=== PATIENT | female | born 1935 | race Caucasian/White ===

== ENCOUNTER 2020-11-04 09:28 | Observation (INO) | payer MEDICARE, SELFPAY ==
[2020-11-04] VITALS (18 sets, daily range): BP systolic 117–140; BP diastolic 52–107; PULSE 59–133; RESP 15–31; TEMP 36.6–37.2; O2SAT 94–100; BMI 29.2
--- NOTE | ~2020-11-04 | XR_ITS ---
XR chest 2V 11/04/2020 10:17 Indication: Shortness of breath. Hypertension. Procedure: 2 view chest Comparison: Comparison to multiple prior studies sequentially, with oldest reviewed study dated 12/06. Findings: There is left lower lobe airspace disease. Small left pleural effusion. No pneumothorax. Pa cemaker leads in expected position. No acute osseous abnormality. Cardiomegaly. Impression: 1: Left lower lobe airspace disease which may represent atelectasis or developing pneumonia. 2: Small left pleural effusion. 3: Cardiomegaly. Reviewed, dictated and finalized at location A. Impression: 1: Left lower lobe airspace disease which may represent atelectasis or developi ng pneumonia. 2: Small left pleural effusion. 3: Cardiomegaly.
--- NOTE | 2020-11-04 09:39 | ECG_ITS ---
Measurements Intervals [place] Rate: 64 P: 144 CA: 234 QRS: -54 QRSD: 148 T: 152 QT: 400 QTc: 413 Interpretive Statements ELECTRONIC ATRIAL PACEMAKER LEFT AXIS DEVIATION LEFT BUNDLE BRANCH BLOCK BASELINE ARTIFACT- I, II, III, AVR, AVL, AVF, V1-V6 NO FURTHER INTERPRETATION IS POSSIBLE ATYPICAL ECG Electronically Signed On 11-04-2020 9:44:13 CDT by Corey Padilla D.O.
[2020-11-04 10:13] LABS: Basophils Percent Auto 0.6 % (0.2-1.2); Eosinophils Absolute Auto 0.2 K/mm3 (0-0.3); Eosinophils Percent Auto 3.7 % (0-4.4); Hematocrit 41.2 % (37.0-47.0); Hemoglobin 12.7 g/dL (12.0-15.0); Immature Granulocyte Absolute 0.02 K/mm3 (0.00-0.031); Immature Granulocyte Percent A 0.3 % (0-0.5); Lymphocytes Absolute Auto 1.56 K/mm3 (0.9-3.2); Lymphocytes Percent Auto 24.8 % (18.3-44.2); Mean Corpuscular HGB Conc 30.8 g/dl (32-36); Mean Corpuscular Hemoglobin 30.2 pg (26-34); Mean Corpuscular Volume 97.9 fl (80-100); Mean Platelet Volume 10.7 fl (7.4-10.4); Monocytes Absolute Auto 0.5 K/mm3 (0.1-0.6); Monocytes Percent Auto 8.3 % (2.6-8.5); Neutrophils Absolute Auto 3.9 K/mm3 (1.3-6.7); Neutrophils Percent Auto 62.3 % (45.5-73.1); Platelet Count Result 202 k/mm3 (150-375); Red Blood Count 4.21 M/mm3 (4.2-5.4); Red Cell Distribution Width 15.3 % (11.5-14.5); White Blood Count 6.3 K/mm3 (4.5-10.0)
[2020-11-04 10:31] LABS: Anion Gap 10 mmol/L (8-16); Blood Urea Nitrogen 28 mg/dL (7-17); Calcium 9.6 mg/dL (8.4-10.2); Carbon Dioxide 22 mmol/L (22-30); Chloride 109 mmol/L (98-107); Estimated CRCL calculation 20 ml/min; Estimated Glomerular Filt Rate 27; Glucose 125 mg/dL (65-105); Potassium 5.1 mmol/L (3.4-5.0); Sodium 141 mmol/L (137-145)
[2020-11-04 10:37] LABS: Alveolar/Arterial O2 Gradient 18.9 mmHg; Base Excess ABG -5.4 mEq/l (+/-2.0); Carboxyhemoglobin 1.4 % THb (0-2.0); Fractional Inspired Oxygen 21 %; Methemoglobin ABG 0.3 %THb (0-1.5); Modified Allen's Test Pass; Oxygen Saturation ABG 96.7 % (95.0-100.0); PO2 ABG 90.1 mmHg (80.0-100.0); PO2 FiO2 Ratio Arterial Blood 4.29 %; Reduced Hemoglobin 3.3 %THb (0-5.0); Site Drawn LEFT RADIAL; Total Hemoglobin 13.4 g/dL (12.0-18.0); pH ABG 7.366 (7.350-7.450)
[2020-11-04 10:38] LABS: Device ROOM AIR
[2020-11-04 10:42] LABS: NT Pro B Type Natriuretic Pept 3210 pg/mL (5-100); Troponin I 0.018 ng/mL (0.000-0.034)
[2020-11-04 10:46] LABS: INR 0.9; Partial Thromboplastin Time 32.9 SECONDS (22.3-36.8); Prothrombin Time 13.1 Seconds (11.1-14.7)
--- NOTE | 2020-11-04 10:46 | ED.SOB ---
HPI - SOB/Dyspnea General Chief Complaint: Shortness of Breath/Dyspnea Stated Complaint: SOB Time Seen by Provider: 11/04/20 10:15 Source: patient Mode of arrival: EMS Limitations: no limitations History of Present Illness HPI Narrative: This is a 84-year-old female that presents to the emergency department for sudden onset shortness of breath this morning. Reports she got up this morning went to the restroom. When she went to lie back down she suddenly felt very short of breath. This has continued since onset which prompted her to call EMS. She was placed on oxygen which has helped her feel better. She does still have some shortness of breath that is worse when she lies flat. Does also report a cough. Denies fever, chest pain, or lower extremity edema. Related Data Home Medications Medication Instructions Recorded Confirmed atorvastatin 06/10/19 furosemide 06/10/19 hydrocodone-acetaminophen 06/10/19 insulin detemir U-100 [Levemir unit SUBCUT 06/10/19 FlexTouch U-100 Insuln] metoprolol succinate PO 06/10/19 pioglitazone mg 06/10/19 amlodipine 11/04/20 Allergies Allergy/AdvReac Type Severity Reaction Status Date / Time propoxyphene AdvReac Mild Vomiting Verified 11/06/19 13:45 sotalol AdvReac Mild SLOW Verified 11/06/19 13:45 HEART/SEIZURES Review of Systems Review of Systems: Narrative: CONSTITUTIONAL: Denies fever CARDIOVASCULAR: Denies chest pain, or edema. RESPIRATORY: Reports cough and dyspnea. All systems reviewed & are unremarkable except as noted in HPI and below PMFSH Past Medical History Medical History (Updated 11/04/20 @ 13:13 by Gwen Gilliam PA-C) Diabetes High cholesterol History of cardiac disorder History of pacemaker (~2012) Hypertension Osteoarthritis of right knee Surgical History Surgical History (Updated 11/06/19 @ 13:47 by Melany Callaway) History of lumbar surgery (~03/20/17) Family History Family History Other Diabetes mellitus Family history of congenital heart disease Social History Social History Smoking status: Never smoker Alcohol intake: never Exam Narrative: Exam Narrative: GENERAL: Elderly, well-nourished, and in no acute distress. HEAD: Normocephalic, atraumatic. EYES: EOMI. ENT: Nares clear, no rhinorrhea or epistaxis. Mucous membranes moist. Oropharynx without tonsillar hypertrophy exudate or other lesions. Bilateral TMs pearly knight non-bulging NECK: Supple. No adenopathy or masses. CHEST: Clear to auscultation. No respiratory distress. No wheezes rales or rhonchi HEART: Regular rate and rhythm. No murmur heard. Normal peripheral pulses. EXTREMITIES: Normal range of motion. No edema. SKIN: Warm, dry, no rash. NEURO: No focal deficits. Alert and oriented x3. PSYCH: Normal mood and affect Course Consultations Consultation #1: Spoke with hospitalist about patient and work-up who accepts admission Date: 11/04/20 Time: 12:20 Vital Signs Vital signs: Vital Signs Pulse Rate 76 11/04/20 09:33 Respiratory Rate 31 H 11/04/20 09:33 Blood Pressure 140/77 11/04/20 09:33 Pulse Oximetry 99 11/04/20 09:33 Temperature 98.7 F 11/04/20 11:30 Pulse Rate 66 11/04/20 11:30 Respiratory Rate 24 H 11/04/20 11:30 Blood Pressure 140/59 L 11/04/20 11:30 Pulse Oximetry 98 11/04/20 11:30 MDM - SOB/Dyspnea MDM Narrative Medical decision making narrative: Patient presents to the emergency department for shortness of breath since this morning that is worsened with lying flat. She is afebrile and nontoxic-appearing. Patient was anxious and tachypneic upon arrival of EMS, they placed her on 3 L nasal cannula. She has been able to be weaned down to 1 L nasal cannula with normal oxygen saturation maintained. CBC is without concerning findings. Metabolic panel with renal function that is likely around her
[2020-11-04] MEDS: FUROSEMIDE INJ 40 MG/4 ML VIAL IV PUSH (11:44)
--- NOTE | 2020-11-04 11:59 | PC.NURSE ---
Patient was taken to the bathroom by sera steady, tolerated well.
--- NOTE | 2020-11-04 12:01 | PC.NURSE ---
Blood glucose was 174 at 12:01
[2020-11-04 12:02] LABS: Glucose Point of Care 174 mg/dl (65-105)
--- NOTE | 2020-11-04 15:02 | ADMGEN ---
This patient, Adina Saldana, was admitted to [facility] Surg Room 327-01. Patient/family oriented to hospital policies and general routines including ID bracelet, bed and alarms, visiting hours, pain management, procedures, bathroom and other care routines, personal items, smoking policy, room service/diet, and visiting hours. Information on how to activate the Rapid Response Team has been discussed. Patient/Family are encouraged to report perceived risks to care and to ask questions if they do not understand what they are told or what they should do.
--- NOTE | 2020-11-04 16:29 | PM.IMHP ---
H&P: HPI History of Present Illness Date/Time: 11/04/20 16:29 this is a 84-year-old female patient who has a history of chronic renal disease and congestive heart failure. The patient has been taking her home medications routinely. However she does not weigh herself daily. The patient stated that she woke up earlier than normal this morning. She woke up and went to the bathroom and was going to return back to bed because it was at her usual waking time. However when the patient got back to bed and laid down she suddenly felt short of breath. She had a set on the side of bed to try to catch her breath and that did help. The patient then sat in the recliner in that did help. The patient stated that she had a similar episode about 2014 and stated that she was diagnosed with congestive heart failure. Staying indoors and has not been out since the COVID outbreak and has not had any recent exposed your to any by that has COVID. The patient was placed on oxygen at 2 L per nasal cannula. Her shortness of breath is worse when she lays flat. She has not had any cough or fever or chest pain or edema to lower extremities. Chest x-ray was read as the following 1: Left lower lobe airspace disease which may represent atelectasis or developing pneumonia. 2: Small left pleural effusion. 3: Cardiomegaly. She was started on a azithromycin and Rocephin for pneumonia. She was also given IV Lasix in the emergency room. The patient does have chronic renal disease and states that her GFR is typically 24 today it is 27 BNP is 3210. Creatinine is 1.8. Potassium is 5.1. Accu-Chek was 174. For COVID-19 prior to be being admitted to 3rd floor. Patient is being admitted to observation status on the date of service of 11/04/2020. Chief Complaint: sob Review of Systems Review of Systems: All systems reviewed & are unremarkable except as noted in HPI and below Constitutional: Constitutional: Reports as per HPI and Reports no additional constitutional complaints Eyes: Eyes: Reports as per HPI and Reports no additional eye complaints ENT: Reports system reviewed and no additional complaints, except as documented and Reports Normal hearing present Cardiovascular: Cardiovascular: Reports no additional cardiovascular complaints Respiratory: Respiratory: Reports no additional respiratory complaints and Reports no additional respiratory complaints Gastrointestinal: Gastrointestinal: Reports as per HPI and Reports no additional gastrointestinal complaints Musculoskeletal: Musculoskeletal: Reports no additional musculoskeletal complaints Integumentary/Breasts: Skin/Breast: Reports system reviewed and no additional complaints, except as docu and Reports as per HPI Neurologic: Reports system reviewed and no additional complaints, except as documented, Reports as per HPI and Reports Normal hearing present Psychiatric: Psychiatric: Reports no additional psychiatric complaints and Reports as per HPI Endocrine: Endocrine: Reports no additional endocrine complaints Hematologic/Lymphatic: Hematologic/Lymphatic: Reports no additional hematologic/lymphatic complaints Allergic/Immunologic: Allergic/Immunologic: Reports no additional allergic/immunologic complaints [facility] Past Medical History Medical History (Updated 11/04/20 @ 17:06 by Callie Barrera NP) Chronic renal failure, stage 4 (severe) Diabetes High cholesterol History of cardiac disorder History of pacemaker (~2012) Hypertension Osteoarthritis of right knee Surgical History Surgical History (Updated 11/04/20 @ 16:34 by Callie Barrera NP) H/O hand surgery History of cataract extraction History of lumbar surgery (~03/20/17) Family History Family History (Updated 11/04/20 @ 16:35 by Callie Barrera NP) Mother Diabetes mellitus Family history of congenital heart disease Congestive heart failure Sibling Diabetes mellitus Other Diabetes mellitus Father Congestive heart failure Yeimi
[2020-11-04] MEDS: HYDROcodone/acetaminophen (*CRX) 5-325 MG TABLET 1 TAB PO (20:36)
[2020-11-04] MEDS: ATORVASTATIN 40 MG TABLET PO (20:37)
[2020-11-04] MEDS: METOPROLOL SUCCINATE EXT REL 100 MG TABCR PO (20:37)
[2020-11-04] MEDS: HEPARIN SODIUM 5,000 UNITS/ML VIAL 5000 UNITS SUB-Q (20:38)
[2020-11-04] MEDS: INSULIN DETEMIR 100 UNITS/ML 14 UNITS SUB-Q (22:34)
[2020-11-04 23:03] LABS: Glucose Point of Care 274 mg/dl (65-105)
[2020-11-05] VITALS (10 sets, daily range): BP systolic 92–151; BP diastolic 51–72; PULSE 62–88; RESP 12–20; TEMP 36.4–37; O2SAT 94–100
[2020-11-05 07:09] LABS: Hematocrit 33.8 % (37.0-47.0); Immature Granulocyte Absolute 0.03 K/mm3 (0.00-0.031); Immature Granulocyte Percent A 0.5 % (0-0.5); Lymphocytes Absolute Auto 0.59 K/mm3 (0.9-3.2); Lymphocytes Percent Auto 9.7 % (18.3-44.2); Mean Corpuscular HGB Conc 32.5 g/dl (32-36); Mean Corpuscular Hemoglobin 30.1 pg (26-34); Mean Corpuscular Volume 92.6 fl (80-100); Mean Platelet Volume 11.3 fl (7.4-10.4); Monocytes Absolute Auto 0.6 K/mm3 (0.1-0.6); Monocytes Percent Auto 10.5 % (2.6-8.5); Neutrophils Absolute Auto 4.8 K/mm3 (1.3-6.7); Neutrophils Percent Auto 79.3 % (45.5-73.1); Platelet Count Result 184 k/mm3 (150-375); Red Blood Count 3.65 M/mm3 (4.2-5.4); Red Cell Distribution Width 15.1 % (11.5-14.5); White Blood Count 6.1 K/mm3 (4.5-10.0)
[2020-11-05 07:23] LABS: Lactic Acid Reflex 1.1 mmol/L (0.7-2.1)
[2020-11-05 07:29] LABS: Anion Gap 9 mmol/L (8-16); Blood Urea Nitrogen 34 mg/dL (7-17); Calcium 9.3 mg/dL (8.4-10.2); Carbon Dioxide 22 mmol/L (22-30); Chloride 107 mmol/L (98-107); Estimated CRCL calculation 21 ml/min; Estimated Glomerular Filt Rate 27; Glucose 120 mg/dL (65-105); Potassium 5.3 mmol/L (3.4-5.0); Sodium 138 mmol/L (137-145)
[2020-11-05 08:22] LABS: Glucose Point of Care 114 mg/dl (65-105)
[2020-11-05 08:38] LABS: Thyroid Stimulating Hormone Reflex 0.367 uIU/mL (0.465-4.68)
[2020-11-05] MEDS: FUROSEMIDE INJ 40 MG/4 ML VIAL IV PUSH (09:22)
[2020-11-05] MEDS: ASPIRIN 81 MG CHEWABLE TABLET PO (09:23)
[2020-11-05] MEDS: HEPARIN SODIUM 5,000 UNITS/ML VIAL 5000 UNITS SUB-Q ×2 (09:23→21:15)
[2020-11-05] MEDS: amLODIPine BESYLATE 5 MG TABLET PO (09:23)
[2020-11-05] MEDS: HYDROcodone/acetaminophen (*CRX) 5-325 MG TABLET 1 TAB PO ×2 (09:24→21:15)
--- NOTE | 2020-11-05 10:10 | PM.IMPN ---
Progress Note: A&P Assessment and Plan (1) Acute exacerbation of CHF (congestive heart failure): Qualifiers: Heart failure type: unspecified Qualified Code(s): I50.9 - Heart failure, unspecified Code(s): I50.9 - Heart failure, unspecified Status: Acute Assessment and Plan: Symptoms clinically consistent with CHF exacerbation with MCKEE and orthopnea. Findings of small pleural effusion and cardiomegaly on CXR. BNP is 3200. Continue diuresis with IV Lasix 40 mg daily. Plan to transition to oral Lasix tomorrow if continued improvement. Continue cautious diuresis in light of chronic kidney disease. Echo has been ordered Continue home metoprolol Monitor daily weights and intake and output. Heart healthy diet. (2) Abnormal chest xray: Code(s): R93.89 - Abnormal findings on diagnostic imaging of other specified body structures Status: Acute Assessment and Plan: CXR with left lower lobe airspace disease which may represent atelectasis or developing pneumonia. She does not have symptoms of acute infection, no fever, leukocytosis, or tachycardia and I feel that her shortness of breath is explained by suspected CHF exacerbation. She is currently requiring 1 L supplemental O2, although does not appear she has been hypoxic and is maintaining adequate oxygen saturations >92% Will hold off on further antibiotics at this time. Supportive care to include incentive spirometry, bronchodilators, and expectorants Wean oxygen with goal saturation 92% or above. (3) Diabetes: Code(s): E11.9 - Type 2 diabetes mellitus without complications Status: Chronic Assessment and Plan: Reports last A1c is 6.6. Blood sugars have been fairly well controlled today. Continue Accu-Cheks, sliding scale insulin, and hypoglycemic protocol Continue home levemir 14 units qHS Check updated A1c (4) Chronic renal failure, stage 4 (severe): Code(s): N18.4 - Chronic kidney disease, stage 4 (severe) Status: Chronic Assessment and Plan: She reports baseline GFR of 24. She is established with multiple needle stitcher Dr. Grimm. She states that she is compliant with a renal diet. Renal function remaining consistent today. Continue to monitor BMP closely with Lasix. (5) Hyperkalemia: Code(s): E87.5 - Hyperkalemia Status: Acute Assessment and Plan: Likely secondary to kidney disease. She reports this is a chronic issue. Potassium 5.3 today. Low-potassium diet Monitor potassium levels closely (6) Hypertension: Code(s): I10 - Essential (primary) hypertension Status: Chronic Assessment and Plan: Pressures reviewed and have been generally well controlled. Last BP 134/66. Continue with Norvasc and metoprolol Monitor blood pressure trends and adjust regimen as needed (7) Person under investigation for severe acute respiratory syndrome coronavirus 2 (SARS-CoV-2) infection: Code(s): Z20.822 - Contact with and (suspected) exposure to COVID-19 Status: Acute Assessment and Plan: She has not completed COVID-19 vaccination. She denies COVID-19 positive contacts and states that she has mostly been in her home and not out in public settings. Chest x-ray reviewed and does not appear consistent with COVID-19 pneumonia COVID-19 test pending Given lack of symptoms, holding on any COVID specific treatment at this time while awaiting results Subjective Date/time seen: 11/05/20 10:10 Interval history: Date of service: 11/05/2020 Adina Saldana is an 84-year-old female with history of stage IV CKD, insulin-dependent diabetes mellitus, hypertension, hyperlipidemia, and sick sinus syndrome S/P pacemaker placement who is seen in follow-up for CHF. She is feeling better today but endorses conversational dyspnea as well as dyspnea on exertion. Also endorses orthopnea. Denies cough or sputum production. Denies c
[2020-11-05 10:17] LABS: Free T4 Free Thyroxine Reflex 1.08 ng/dL (0.78-2.19)
[2020-11-05] MEDS: guaiFENesin 12 HR 600 MG TABCR PO (10:53)
[2020-11-05 11:20] LABS: Total Triiodothyronine (T3) 1.06 NG/ML (0.97-1.69)
[2020-11-05 11:48] LABS: Glucose Point of Care 88 mg/dl (65-105)
[2020-11-05 16:38] LABS: Glucose Point of Care 97 mg/dl (65-105)
[2020-11-05 17:32] LABS: Glucose Point of Care 103 mg/dl (65-105)
[2020-11-05 19:26] LABS: SARS-CoV-2 RNA PCR Negative
[2020-11-05] MEDS: INSULIN DETEMIR 100 UNITS/ML 14 UNITS SUB-Q (21:08)
[2020-11-05 21:15] LABS: Glucose Point of Care 144 mg/dl (65-105)
[2020-11-05] MEDS: METOPROLOL SUCCINATE EXT REL 100 MG TABCR PO (21:15)
[2020-11-05] MEDS: ATORVASTATIN 40 MG TABLET PO (21:15)
[2020-11-06 05:52] VITALS: BP 139/67; PULSE 73; RESP 18; TEMP 36.5; O2SAT 99
[2020-11-06 06:38] LABS: Hemoglobin 11.8 g/dL (12.0-15.0)
[2020-11-06 06:53] LABS: Anion Gap 9 mmol/L (8-16); Blood Urea Nitrogen 38 mg/dL (7-17); Calcium 9.3 mg/dL (8.4-10.2); Carbon Dioxide 25 mmol/L (22-30); Chloride 107 mmol/L (98-107); Estimated CRCL calculation 21 ml/min; Estimated Glomerular Filt Rate 27; Glucose 97 mg/dL (65-105); Potassium 4.3 mmol/L (3.4-5.0); Sodium 141 mmol/L (137-145)
[2020-11-06 08:03] LABS: Glucose Point of Care 137 mg/dl (65-105)
[2020-11-06] MEDS: HEPARIN SODIUM 5,000 UNITS/ML VIAL 5000 UNITS SUB-Q (09:32)
[2020-11-06] MEDS: ASPIRIN 81 MG CHEWABLE TABLET PO (09:32)
[2020-11-06] MEDS: FUROSEMIDE INJ 40 MG/4 ML VIAL IV PUSH (09:32)
[2020-11-06] MEDS: amLODIPine BESYLATE 5 MG TABLET PO (09:32)
[2020-11-06] MEDS: HYDROcodone/acetaminophen (*CRX) 5-325 MG TABLET 1 TAB PO (09:55)
[2020-11-06 11:53] LABS: Glucose Point of Care 126 mg/dl (65-105)
--- NOTE | 2020-11-06 13:13 | PM.DS ---
DS: Admitting Diagnosis Admitting Diagnosis Admitting Diagnosis: CHF exacerbation DS: Discharge Diagnosis Discharge Diagnosis (1) Acute exacerbation of CHF (congestive heart failure): Qualifiers: Heart failure type: unspecified Qualified Code(s): I50.9 - Heart failure, unspecified Code(s): I50.9 - Heart failure, unspecified Status: Acute Assessment and Plan: Symptoms clinically consistent with CHF exacerbation with MCKEE and orthopnea. Findings of small pleural effusion and cardiomegaly on CXR. BNP was 3200. Echo was ordered but unable to be completed over the weekend. She was diuresed with IV Lasix and volume status improved. She was started on p.o. Lasix 20 mg daily. CHF education provided. Continue home metoprolol. She will need to follow-up with her duplication specialist for further monitoring and to obtain echocardiogram. (2) Abnormal chest xray: Code(s): R93.89 - Abnormal findings on diagnostic imaging of other specified body structures Status: Acute Assessment and Plan: CXR with left lower lobe airspace disease which may represent atelectasis or developing pneumonia. She did not have symptoms of acute infection, no fever, leukocytosis, or tachycardia and I feel that her shortness of breath is explained by suspected CHF exacerbation. She required up to 1 L supplemental O2, although no hypoxic episodes were noted. Oxygen was weaned and she was stable on room air. (3) Diabetes: Code(s): E11.9 - Type 2 diabetes mellitus without complications Status: Chronic Assessment and Plan: Reports last A1c is 6.6. Blood sugars were fairly well controlled with sliding scale insulin and home Levemir. (4) Chronic renal failure, stage 4 (severe): Code(s): N18.4 - Chronic kidney disease, stage 4 (severe) Status: Chronic Assessment and Plan: She reports baseline GFR of 24. She is established with cloth presser Dr. Grimm. She states that she is compliant with a renal diet. Renal function remained stable with diuresis. Repeat BMP in 1 week to ensure remaining stable on low dose lasix. Will need to discontinue if renal function worsens. (5) Hyperkalemia: Code(s): E87.5 - Hyperkalemia Status: Acute Assessment and Plan: Likely secondary to kidney disease. She reports this is a chronic issue. Potassium increased to 5.3. A low-potassium diet was started and potassium levels normalized. 4.3 at time of discharge. (6) Hypertension: Code(s): I10 - Essential (primary) hypertension Status: Chronic Assessment and Plan: Pressures reviewed and were generally well controlled with home Norvasc and metoprolol (7) Person under investigation for severe acute respiratory syndrome coronavirus 2 (SARS-CoV-2) infection: Code(s): Z20.822 - Contact with and (suspected) exposure to COVID-19 Status: Acute Assessment and Plan: She has not completed COVID-19 vaccination. She denies COVID-19 positive contacts and states that she has mostly been in her home and not out in public settings. Chest x-ray reviewed and does not appear consistent with COVID-19 pneumonia. COVID-19 test negative on 11/04/2020 DS: Summary Hospital Course Hospital Course: Date of admission: 11/04/2020 Date of discharge: 11/06/2020 Adina Saldana is an 84-year-old female with history of stage IV CKD, insulin-dependent diabetes mellitus, hypertension, hyperlipidemia, and sick sinus syndrome s/p pacemaker placement who presented to the emergency department on 11/04/2020 with complaints of shortness of breath, worsened when lying flat. Upon presentation to the emergency department, her vital signs were stable, she was afebrile, CBC within normal limits, potassium 5.1, BUN 28, creatinine 1.8, additional electrolytes stable, BNP 3210, CXR showed left lower lobe airspace disease, small pleural effusion, and cardiomegaly. She was admitted t
== END 2020-11-06 14:30 | disposition home or self-care (01) ==
LOC: ANHED 13:13 → ANH3MEDSUR 13:17
PROVIDERS: Nurse Practitioner; Physician Assistant; Admitting Provider Internal Medicine; Emergency Provider Family Medicine; PCP Family Medicine; Visit Provider Family Medicine
DX: I13.0 Hypertensive heart and chronic kidney disease with heart failure and stage 1 through stage 4 chronic kidney disease, or unspecified chronic kidney disease (principal); I50.9 Heart failure, unspecified; R93.89 Abnormal findings on diagnostic imaging of other specified body structures; R06.02 Shortness of breath; N18.4 Chronic kidney disease, stage 4 (severe); E78.00 Pure hypercholesterolemia, unspecified; E11.22 Type 2 diabetes mellitus with diabetic chronic kidney disease; I49.5 Sick sinus syndrome; Z87.891 Personal history of nicotine dependence; Z20.822 Contact with and (suspected) exposure to COVID-19; Z79.4 Long term (current) use of insulin; Z95.0 Presence of cardiac pacemaker
CPT/HCPCS: 36415; 36600; 71046; 80048; 82375; 82805; 82948; 83050; 83605; 83735; 83880; 84439; 84443; 84480; 84484; 85014; 85018; 85025; 85610; 85730; 87040; 93005; 96365; 96366; 96367; 96372; 96375; 96376; 99285; A9270; C9803; G0378; J0456; J0696; J1644; J1815; J1940; J3370; U0003; U0005

== ENCOUNTER 2021-11-05 05:59 | Inpatient (IN) | payer MEDICARE, SELFPAY ==
[2021-11-05] VITALS (18 sets, daily range): BP systolic 98–153; BP diastolic 62–104; PULSE 59–117; RESP 12–40; TEMP 36.2–37.1; O2SAT 96–100; BMI 25.8
--- NOTE | ~2021-11-05 | US_ITS ---
EXAMINATION: US renal BI DATE: 11/07/2021 15:49 INDICATION: renal failure TECHNIQUE: Multiple grayscale and Doppler ultrasound images of the kidneys were obtained. COMPARISON: CT 04/08/2015. FINDINGS: The right kidney measures 10.1 x 5.0 x 3.0 cm. The left kidney measures 9.8 x 3.7 x 4.7 cm. The kidne ys demonstrate increased parenchymal echogenicity and cortical thinning.No sonographic evidence of ne phrolithiasis. Simple left inferior pole cyst. No hydronephrosis. The bladder is well distended. Blad mary wall thickness is subjectively increased but not directly measured. Right ureteral jet detected. IMPRESSION: 1. Medical renal disease. 2. Simple left inferior pole cyst. 3. Possible cystitis. Reviewed, dictated and finalized at location K.
--- NOTE | ~2021-11-05 | US_ITS ---
EXAMINATION: US thoracentesis DATE: 11/06/2021 11:27 INDICATION: pleural effusion TECHNIQUE: The procedure and its risks, benefits, and alternatives were discussed with the patient. P otential risks discussed included bleeding, infection, and pneumothorax. The patient understood the r isks and agreed to proceed. The skin was prepped and draped in sterile fashion. 1% lidocaine was used for local anesthesia. Under ultrasound guidance, a 5 Fr catheter with trochar was advanced into the left pleural effusion. Fluid was aspirated. The catheter was removed, and a dressing was applied. The re were no immediate complications. FINDINGS: Ultrasound images demonstrate a left pleural effusion and the catheter within the fluid. IMPRESSION: 1. Successful ultrasound-guided thoracentesis yielding 1000 mL of serosanguineous fluid. Reviewed, dictated and finalized at location A. IMPRESSION: 1. Successful ultrasound-guided thoracentesis yielding 1000 mL of serosanguine ous fluid.
--- NOTE | ~2021-11-05 | US_ITS ---
US venous doppler [facility] DATE: 11/05/2021 11:08 INDICATION: Shortness of breath TECHNIQUE: Real-time and color flow imaging and Doppler analysis of the veins of the lower extremitie s COMPARISON: None FINDINGS: The greater saphenous veins are patent. There is spontaneous and phasic flow and normal aug mentation and color flow signal and normal compression of the deep veins of both lower extremities. IMPRESSION: No evidence of deep venous thrombosis of the lower extremities Reviewed, dictated and finalized at Location A. Reviewed, dictated and finalized at location A.
--- NOTE | ~2021-11-05 | XR_ITS ---
EXAMINATION: [id number]_CR DATE: 11/06/2021 11:21 INDICATION: Left pleural effusion status post thoracentesis. TECHNIQUE: A single frontal view of the chest was obtained. COMPARISON: Chest single view 11/05/2021 FINDINGS: There is a moderate-sized left pleural effusion. There are airspace opacities in all left l penny zones. A calcified right lung nodule and calcified right hilar lymph nodes are consistent with ol d granulomatous disease. No pneumothorax. Cardiomegaly is noted. There is mediastinal lymphadenopathy . There is a left chest wall pacer with leads in the right atrium and right ventricle. IMPRESSION: 1. Moderate-sized left pleural effusion with improvement status post thoracentesis. 2. Airspace opacities in left lung, likely a combination of atelectasis, pneumonia, and malignancy. 3. Mediastinal lymphadenopathy, consistent with metastatic disease. 4. Cardiomegaly. Reviewed, dictated and finalized at location A. IMPRESSION: 1. Moderate-sized left pleural effusion with improvement status post thoracente sis. 2. Airspace opacities in left lung, likely a combination of atelectasis, pneumo ren, and malignancy. 3. Mediastinal lymphadenopathy, consistent with metastatic disease. 4. Cardiomegaly.
--- NOTE | ~2021-11-05 | XR_ITS ---
XR chest 1V portable DATE: 11/05/2021 06:32 INDICATION: Dyspnea TECHNIQUE: Portable upright AP view on 11/05/2021 at 0627 hours COMPARISON: 11/04/2020 AP and lateral chest FINDINGS: There is opacification of the lower 1/2-2/3 of the left thorax due to large left pleural ef fusion and associated compressive left lung atelectasis. The right lung is clear. No right pleural effusion. Cardiac megaly. Aortic calcification. Left dual-lead pacemaker device with leads overlying right atrium and right ventricle. Diffuse osteopenia. Chronic right rotator cuff atrophy. Bilateral osteoarthritis at the glenohumeral joints. IMPRESSION: Very large left pleural effusion with associated compressive atelectasis of left lung Cardiac megaly Aortic atherosclerosis Left dual-lead pacemaker Reviewed, dictated and finalized at location A. IMPRESSION: Very large left pleural effusion with associated compressive atelec tasis of left lung Cardiac megaly Aortic atherosclerosis Left dual-lead pacemaker
--- NOTE | ~2021-11-05 | CT_ITS ---
EXAMINATION: CT chest high resolution wo co DATE: 11/05/2021 07:18 INDICATION: Shortness of breath for one week. Large left pleural effusion. TECHNIQUE: Computed tomography (CT) of the chest was performed without intravenous contrast. Automate d exposure control and iterative reconstruction technique were employed. Exam dose: 140.02 mGy-cm to cheryl exam DLP. COMPARISON: 11/05/2021 portable AP chest FINDINGS: There is cardiomegaly. Left-sided transvenous pacemaker device with leads in right atrium a nd right ventricle. No pericardial effusion. There is extensive thoracic aortic as well as great vessel calcification. The ascending aorta measure s approximately 3.6 cm diameter, the mid aortic arch 2.7 cm diameter, the posterior aortic arch 3.6 c m diameter and the descending thoracic aorta approximately 2.6 cm diameter. There is extensive calcification of the coronary arteries. There is extensive superior mediastinal, right paratracheal, subcarinal and probable bilateral hilar lymphadenopathy, suggesting lymphoma or extensive metastatic disease. Calcified right hilar nodes and right lower lobe calcified pulmonary granuloma consistent with old pu lmonary granulomatous disease. Minimal dependent atelectasis in the right lower lobe. Mild emphysematous change including right uppe r lobe bullae. There is a large left pleural effusion with prominent atelectasis/consolidation of the left upper and lower lobes. There is a 9 mm nodule in the anterior aspect of the left upper lobe Bilateral breast implants. Degenerative changes of the cervical, thoracic and lumbar spine. No suspicious osteolytic or osteobla stic lesions are noted. IMPRESSION: Extensive superior mediastinal, right paratracheal, aortopulmonary window, subcarinal, h ilar lymphadenopathy, suggesting lymphoma or metastatic disease Large left pleural effusion Extensive atelectasis/consolidation of left upper and lower lobes 9 mm nodule, anterior left upper lobe; bronchogenic carcinoma is not excluded Emphysema Old pulmonary granulomatous disease with some any thickening Cardiomegaly Thoracic aortic aneurysm Extensive coronary artery calcification Left-sided dual-lead transvenous pacemaker device Reviewed, dictated and finalized at Location A. Reviewed, dictated and finalized at location A. IMPRESSION: Extensive superior mediastinal, right paratracheal, aortopulmonary window, subcarinal, hilar lymphadenopathy, suggesting lymphoma or metastatic d isease Large left pleural effusion Extensive atelectasis/consolidation of left upper and lower lobes 9 mm nodule, anterior left upper lobe; bronchogenic carcinoma is not excluded Emphysema Old pulmonary granulomatous disease with some any thickening Cardiomegaly Thoracic aortic aneurysm Extensive coronary artery calcification Left-sided dual-lead transvenous pacemaker device
--- NOTE | ~2021-11-05 | XR_ITS ---
EXAMINATION: XR chest 1V portable DATE: 11/08/2021 05:52 INDICATION: Left pleural effusion. TECHNIQUE: A single frontal view of the chest was obtained. COMPARISON: Chest single view 11/06/2021, chest CT 11/05/2021 FINDINGS: There is a moderate-sized left pleural effusion. There is mild scarring at the lung apices. There are airspace opacities in left mid and lower lung zones. No pneumothorax. Cardiomegaly is note d. There is a left chest wall pacer with leads in the right atrium and right ventricle. There is medi astinal lymphadenopathy. IMPRESSION: 1. Stable moderate-sized left pleural effusion. 2. Airspace opacities in left mid and lower lung zones, likely a combination of atelectasis, pneumoni a, and malignancy. 3. Mediastinal lymphadenopathy, consistent with metastatic disease. 4. Cardiomegaly. Reviewed, dictated and finalized at location A. IMPRESSION: 1. Stable moderate-sized left pleural effusion. 2. Airspace opacities in left mid and lower lung zones, likely a combination of atelectasis, pneumonia, and malignancy. 3. Mediastinal lymphadenopathy, consistent with metastatic disease. 4. Cardiomegaly.
--- NOTE | 2021-11-05 06:01 | ECG_ITS ---
Measurements Intervals [place] Rate: 108 P: -18 [place]: 249 QRS: -25 QRSD: 150 T: 154 QT: 348 QTc: 468 Interpretive Statements POSSIBLE ATRIAL FIBRILLATION WITH RVR MARKED BASELINE ARTIFACT LEFT BUNDLE BRANCH BLOCK [120+ ms QRS DURATION, 80+ ms Q/S IN V1/V2, 85+ ms R IN I/aVL/V5/V6] ABNORMAL ECG COMPARED TO ECG 11/04/2020 09:37:43 HEART RATE HAS INCREASED AND POSSIBLE ATRIAL FIBRILLATION IS NOW PRESENT Electronically Signed On 11-05-2021 9:29:48 CDT by Edmundo Roberts M.D.
--- NOTE | 2021-11-05 06:26 | ED.SOB ---
HPI - SOB/Dyspnea General Chief Complaint: Shortness of Breath/Dyspnea <Paul Whitlock, DO - Last Filed: 11/05/21 07:28> Stated Complaint: shortness of breath x 1 week <Paul Whitlock, DO - Last Filed: 11/05/21 07:28> Time Seen by Provider: 11/05/21 06:01 <Paul Whitlock, DO - Last Filed: 11/05/21 07:28> History of Present Illness HPI Narrative: 85-year-old female presents emergency room secondary to shortness of breath. Is been going on for quite some time, progressively worse. States she is even worse last night subsequently called 911 brought to the emergency room. She does not normally have a history of COPD or any other chronic respiratory problems. She does have a history of atrial fibrillation and she thinks maybe she was told she had congestive heart failure at one time. Denies any cough congestion. No one else at home has been sick. She is short of breath and dyspneic even with conversation at this time. She states that whenever she lays down flat the breathing gets even worse. She is had no swelling in her legs. <Paul Whitlock, DO - Last Filed: 11/05/21 07:28> Related Data Home Medications: Home Medications Medication Instructions Recorded Confirmed atorvastatin 40 mg tablet 40 mg PO HS 06/10/19 12/28/20 hydrocodone 5 mg-acetaminophen 325 1 tablet PO BID PRN Pain 06/10/19 12/28/20 mg tablet insulin detemir U-100 100 unit/mL See Rx Instructions .Route 06/10/19 12/28/20 (3 mL) subcutaneous pen (Levemir .COMPLEX PRN blood sugar FlexTouch U-100 Insulin) metoprolol succinate 100 mg 100 mg PO HS 06/10/19 12/28/20 tablet,extended release 24 hr amlodipine 5 mg tablet 5 mg PO DAILY 11/04/20 12/28/20 cholecalciferol (vitamin D3) 50 50 mcg PO DAILY 12/28/20 12/28/20 mcg (2,000 unit) capsule insulin detemir U-100 100 unit/mL 18 unit subcut QHS 12/28/20 12/28/20 subcutaneous solution (Levemir U-100 Insulin) rivaroxaban 15 mg tablet (Xarelto) 15 mg PO DAILY 12/28/20 12/28/20 <Paul Whitlock DO - Last Filed: 11/05/21 07:28> Allergies/Adverse Reactions: Allergies Allergy/AdvReac Type Severity Reaction Status Date / Time propoxyphene AdvReac Mild Vomiting Verified 12/28/20 10:17 sotalol AdvReac Mild SLOW Verified 12/28/20 10:17 HEART/SEIZURES <Paul Whitlock DO - Last Filed: 11/05/21 07:28> Review of Systems Review of Systems: CONSTITUTIONAL: Denies fever, chills, or sweats. EYES: Denies visual changes, redness, or discharge. ENT: Denies rhinorrhea, congestion, sore throat, or otalgia. CARDIOVASCULAR: Denies chest pain, palpitations, or edema. RESPIRATORY: Extremely short of breath Progressively worse. Denies any productive cough GASTROINTESTINAL: Denies abdominal pain, nausea, vomiting, or diarrhea. GENITOURINARY: Denies dysuria or hematuria. SKIN: Denies rash or itching. MUSCULOSKELETAL: Denies back pain, joint pain, or myalgia. NEUROLOGIC: Denies headache, numbness, or weakness. PSYCHIATRIC: Denies anxiety or depression. <Paul Whitlock DO - Last Filed: 11/05/21 07:28> [facility] Past Medical History Medical History: Medical History Chronic renal failure, stage 4 (severe) Diabetes High cholesterol History of cardiac disorder History of pacemaker (~2012) Hypertension Osteoarthritis of right knee <Paul Whitlock DO - Last Filed: 11/05/21 07:28> Surgical History Surgical History: Surgical History H/O hand surgery History of cataract extraction History of lumbar surgery (~03/20/17) <Paul Whitlock DO - Last Filed: 11/05/21 07:28> Family History Family History: Family History Mother Diabetes mellitus Family history of congenital heart disease Congestive heart failure Sibling Diabetes mellitus Other Diabetes mellitus Father Congestive heart fa
[2021-11-05] MEDS: FUROSEMIDE INJ 40 MG/4 ML VIAL IV PUSH ×2 (06:33→18:09)
[2021-11-05 07:00] LABS: Basophils Percent Auto 0.1 % (0.2-1.2); Eosinophils Percent Auto 0.1 % (0-4.4); Hematocrit 51.3 % (37.0-47.0); Hemoglobin 17.7 g/dL (12.0-15.0); Immature Granulocyte Absolute 0.07 K/mm3 (0.00-0.031); Immature Granulocyte Percent A 0.6 % (0-0.5); Lymphocytes Absolute Auto 0.67 K/mm3 (0.9-3.2); Lymphocytes Percent Auto 5.9 % (18.3-44.2); Mean Corpuscular HGB Conc 34.5 g/dl (32-36); Mean Corpuscular Hemoglobin 29.9 pg (26-34); Mean Corpuscular Volume 86.7 fl (80-100); Mean Platelet Volume 9.5 fl (7.4-10.4); Monocytes Absolute Auto 0.9 K/mm3 (0.1-0.6); Monocytes Percent Auto 7.5 % (2.6-8.5); Neutrophils Absolute Auto 9.8 K/mm3 (1.3-6.7); Neutrophils Percent Auto 85.8 % (45.5-73.1); Platelet Count Result 289 k/mm3 (150-375); Red Blood Count 5.92 M/mm3 (4.2-5.4); Red Cell Distribution Width 13.9 % (11.5-14.5); White Blood Count 11.4 K/mm3 (4.5-10.0)
[2021-11-05 07:12] LABS: Alanine Aminotransferase 24 U/L (6-35); Albumin Level 3.8 g/dL (3.5-5.1); Alkaline Phosphatase 67 U/L (38-126); Anion Gap 6 mmol/L (8-16); Aspartate Amino Transferase 30 U/L (14-36); Bilirubin,Total 0.6 mg/dL (0.2-1.3); Blood Urea Nitrogen 52 mg/dL (7-17); Calcium 8.6 mg/dL (8.4-10.2); Carbon Dioxide 27 mmol/L (22-30); Chloride 94 mmol/L (98-107); Estimated CRCL calculation 22 ml/min; Estimated Glomerular Filt Rate 31; Glucose 102 mg/dL (65-110); Potassium 4.5 mmol/L (3.4-5.0); Sodium 127 mmol/L (137-145)
[2021-11-05 07:17] LABS: D Dimer 2.81 ug/mL (<0.48)
[2021-11-05 07:30] LABS: NT Pro B Type Natriuretic Pept 5280 pg/mL (5-100); Troponin I 0.046 ng/mL (0.000-0.034)
[2021-11-05 07:37] LABS: SARS-CoV-2 RNA PCR Negative
--- NOTE | 2021-11-05 13:09 | ADMGEN ---
This patient, Adina Saldana, was admitted to IMU Room 207-01. Patient/family oriented to hospital policies and general routines including ID bracelet, bed and alarms, visiting hours, pain management, procedures, bathroom and other care routines, personal items, smoking policy, room service/diet, and visiting hours. Information on how to activate the Rapid Response Team has been discussed. Patient/Family are encouraged to report perceived risks to care and to ask questions if they do not understand what they are told or what they should do.
--- NOTE | 2021-11-05 13:40 | PC.NURSE ---
Patient is A&O x4. Stated she wants to be a DNR. Notified Charge Nurse. Notified .
--- NOTE | 2021-11-05 15:23 | PM.IMHP ---
H&P: HPI History of Present Illness Date/Time: 11/05/21 15:23 Chief Complaint: Shortness of breath Narrative: 85-year-old female presents emergency room secondary to shortness of breath that has been progressively getting worse since a week now. Denies any increased leg swelling. She denies any cough as well. She denies any chest pain. Last night got worse and hence called 911 to bring her to the ER. She does not have any history of chronic respiratory problem. She does have a history of CHF and atrial fibrillation. She takes Lasix on a regular basis. She denies any history of DVT PE. She was noted to have left-sided pleural effusion and hence getting admitted for further evaluation and management. Review of Systems Review of Systems: - CONSTITUTIONAL: Denies weight loss, fever and chills. - HEENT: Denies changes in vision and hearing - RESPIRATORY: Reports SOB and denies cough. - CV: Reports some palpitations and denies CP. - GI: Denies abdominal pain, nausea, vomiting and diarrhea. - : Denies dysuria and urinary frequency. - MSK: Denies myalgia and joint pain. - SKIN: Denies rash and pruritus. - NEUROLOGICAL: Denies headache and syncope. - PSYCHIATRIC: Denies recent changes in mood. Denies anxiety and depression. All systems reviewed & are unremarkable except as noted in HPI and below Constitutional: Constitutional: Reports fatigue and Reports weakness Neurologic: Reports weakness Endocrine: Endocrine: Reports fatigue [facility] Past Medical History Medical History Chronic renal failure, stage 4 (severe) Diabetes High cholesterol History of cardiac disorder History of pacemaker (~2012) Hypertension Osteoarthritis of right knee Surgical History Surgical History H/O hand surgery History of cataract extraction History of lumbar surgery (~03/20/17) Family History Family History (Updated 11/05/21 @ 13:20 by Shona Obando RN) Mother Diabetes mellitus Congestive heart failure Family history of congenital heart disease Pacemaker Sibling Diabetes mellitus Other Diabetes mellitus Father Congestive heart failure Daughter Cancer Daughter by fire Social History Social History Social History: The patient stated that she quit smoking about 15 years ago. She did have 4 children. One daughter at the age of 10 due to cancer and the other 1 in a house fire. The patient is retired from daycare and her daughter now is the durable power civil rights attorney for healthcare. The patient desires to be a DNR. The patient is and lives home alone. She denies any alcohol marijuana or illicit drugs. Smoking packs per day: 1 Smoking cigarettes per day: 20.0 Years smoked: 42 Smoking pack-years: 42.00 Smoking status: Former smoker Tobacco type: cigarettes Alcohol intake: never Substance use: never Gender identity (if verbalized by the patient): Female Spiritual care concerns: No Meds Home Medications and Allergies Home Medications Medication Instructions Recorded Confirmed Type atorvastatin 40 mg tablet 40 mg PO HS 06/10/19 11/05/21 History hydrocodone 5 mg-acetaminophen 325 1 tablet PO BID PRN Pain 06/10/19 11/05/21 History mg tablet insulin detemir U-100 100 unit/mL See Rx Instructions .Route 06/10/19 11/05/21 History (3 mL) subcutaneous pen (Levemir .COMPLEX PRN blood sugar FlexTouch U-100 Insulin) metoprolol succinate 100 mg 100 mg PO HS 06/10/19 11/05/21 History tablet,extended release 24 hr amlodipine 5 mg tablet 5 mg PO DAILY 11/04/20 11/05/21 History furosemide 20 mg tablet 20 mg PO DAILY #30 tabs 11/06/20 11/05/21 Rx cholecalciferol (vitamin D3) 50 2,000 unit PO DAILY 12/28/20 11/05/21 History mcg (2,000 unit) capsule insulin detemir U-100 100 unit/mL 18 unit s
[2021-11-05 16:52] LABS: Hemoglobin A1C 6.8 % (<5.7)
[2021-11-05 17:03] LABS: Troponin I 0.036 ng/mL (0.000-0.034)
[2021-11-05 18:02] LABS: Glucose Point of Care 207 mg/dl (65-105)
[2021-11-05] MEDS: INSULIN ASPART (*BKC) 100 UNITS/ML SUB-Q (18:08)
[2021-11-05] MEDS: ATORVASTATIN 40 MG TABLET PO (20:32)
[2021-11-05] MEDS: METOPROLOL SUCCINATE EXT REL 100 MG TABCR PO (20:32)
[2021-11-05] MEDS: SODIUM BICARBONATE TAB 650 MG TABLET PO (20:32)
[2021-11-05 21:11] LABS: Glucose Point of Care 97 mg/dl (65-105)
[2021-11-05] MEDS: ZOLPIDEM TARTRATE (*CRX) 5 MG TABLET PO (22:46)
[2021-11-05 23:48] LABS: Glucose Point of Care 90 mg/dl (65-105)
[2021-11-06] VITALS (20 sets, daily range): BP systolic 109–135; BP diastolic 59–100; PULSE 60–116; RESP 16–24; TEMP 36.1–36.6; O2SAT 94–100; BMI 26.2
[2021-11-06] MEDS: ALBUTEROL SULFATE NEB 2.5 MG/3 ML INH INHALATION (02:20)
[2021-11-06 08:01] LABS: Glucose Point of Care 117 mg/dl (65-105)
--- NOTE | 2021-11-06 08:15 | PM.CNPUL ---
Assessment and Plan Assessment and plan (1) Pleural effusion: Code(s): J90 - Pleural effusion, not elsewhere classified Status: Acute Assessment and Plan: Patient patient with a history of tobacco use (53 PY), mild centrilobular and moderate paraseptal apical predominant emphysema now with SOB, weight loss, mediastinal, right paratracheal, right supraclavicular, subcarinal and bilateral lymphadenopathy. Patient denies any infectious complaints at this time. I spoke with Radiology and reviewed her CT scan. Plan as follows. Left thoracentesis for symptoms and to assess for empyema, transudate, exudate and for cytology. If the thoracentesis is negative for diagnosis radiology can perform ultrasound-guided biopsy of the right supraclavicular lymph node. Patient has told me that if she is found to have cancer she wishes for no treatment. She is willing to proceed with thoracentesis at this time. Discussed with Dr. Guardado. Will follow with you History of Present Illness History of Present Illness Consult date: 11/06/21 Chief complaint: Pleural Effusion, CHF, Hypoxia, Hyponatemia Narrative: This is a new pulmonary consult for left pleural effusion and lymphadenopathy. 85-year-old woman with a history of hypertension, hyperlipidemia, sick sinus syndrome status post permanent pacemaker, atrial fibrillation on Xarelto who presented to the hospital on 11/05/2021 with 1 week worsening shortness of breath, dyspnea on exertion, orthopnea. Patient denies fever, chills, cough, hemoptysis, change in bowel or urinary issues. she does tell me she has lost 10 lb over the last month from 155 lb to 145 lb. On 11/05 the patient was short of breath and presented to the emergency room with a white blood cell count of 6.3, blood gas of 7.37/34/90 on room air, creatinine of 1.80, BNP of 32 1 0, a TSH of 0.367, free T4 1.08, total T3 1.06, COVID RT PCR negative. patient had a chest x-ray with a large left pleural effusion and had a CT scan of the chest demonstrating mild centrilobular and moderate apical predominant paraseptal emphysema, large left pleural effusion, mediastinal, right paratracheal, subcarinal, supraclavicular on the right and bilateral hilar lymphadenopathy. There is a 9 mm nodule in the left upper Her last dose of right for rocks a band was / in the afternoon. patient smoked 1 pack of cigarettes from 6511-4418 for a total of 53 pack years. Patient's was exposed to secondhand smoke from her from [id number] and he of small cell lung cancer. Patient denies vaping, illicit drug use, sandblasting, welding, asbestos were, professional painting or steel millstone cleaner. Patient denies prior history of cancer. Patient denies prior history of chemotherapy. 11/06: When I enter the room patient was on 2 L nasal cannula saturations 99%. I placed her on room air and her saturations were 96%. The patient still complained of shortness of breath at rest and with any activity. There were no wheezing on exam. DATA: EXAMINATION: CT chest high resolution wo co DATE: 11/05/2021 07:18 INDICATION: Shortness of breath for one week. Large left pleural effusion. TECHNIQUE: Computed tomography (CT) of the chest was performed without intravenous contrast. Automated exposure control and iterative reconstruction technique were employed. Exam dose:? 140.02 mGy-cm total exam DLP.? COMPARISON: 11/05/2021 portable AP chest FINDINGS: There is cardiomegaly. Left-sided transvenous pacemaker device with leads in right atrium and right ventricle. No pericardial effusion. There is extensive thoracic aortic as well as great vessel calcification. The ascending aorta measures approximately 3.6 cm diameter, the mid aortic arch 2.7 cm diameter, the posterior aortic arch 3.6 cm diameter and the descending thoracic aorta approximately 2.6 cm diameter. There is extensive calcification of the coronary arteries. There i
[2021-11-06 08:53] LABS: Alanine Aminotransferase 22 U/L (6-35); Albumin Level 3.7 g/dL (3.5-5.1); Alkaline Phosphatase 67 U/L (38-126); Anion Gap 8 mmol/L (8-16); Aspartate Amino Transferase 28 U/L (14-36); Bilirubin,Total 0.8 mg/dL (0.2-1.3); Blood Urea Nitrogen 63 mg/dL (7-17); Calcium 8.2 mg/dL (8.4-10.2); Carbon Dioxide 22 mmol/L (22-30); Chloride 94 mmol/L (98-107); Estimated CRCL calculation 16 ml/min; Estimated Glomerular Filt Rate 24; Glucose 117 mg/dL (65-110); INR 1.1; Magnesium 2.4 mg/dL (1.6-2.3); Potassium 4.2 mmol/L (3.4-5.0); Prothrombin Time 14.2 Seconds (11.1-14.7); Sodium 124 mmol/L (137-145)
[2021-11-06 08:54] LABS: Partial Thromboplastin Time 23.8 SECONDS (22.3-36.8)
[2021-11-06] MEDS: SODIUM BICARBONATE TAB 650 MG TABLET PO ×2 (09:40→20:58)
[2021-11-06] MEDS: FUROSEMIDE INJ 40 MG/4 ML VIAL IV PUSH (09:41)
--- NOTE | 2021-11-06 10:37 | PM.CNCAR ---
Assessment and Plan Assessment and plan (1) Pleural effusion: Code(s): J90 - Pleural effusion, not elsewhere classified Status: Acute Plan This is an 85-year-old woman that I see in my office for a long time was chronic atrial fibrillation and has a chronically implanted dual-chamber pacemaker. Back when she was in sinus rhythm in the past she had sick sinus syndrome with symptomatic pauses. The device is functioning normally and has about 2 and half years of battery life left. He now enters the hospital with shortness of breath has a large unilateral left pleural effusion and significant lymphadenopathy in the chest as well. This is almost certainly not indicative of decompensated heart failure she has no other symptoms or physical exam findings to suggest decompensated CHF. We will be very interesting to see the results of her pleural fluid analysis and if necessary we will leave further recommendations but I do not expect this to be a cardiac issue based on what I see at this time Leonard Argueta MD [facility] History of Present Illness History of Present Illness Consult date/time: 11/06/21 10:37 Consult reason: atrial fibrillation and congestive heart failure Reason For Visit: Pleural Effusion, CHF, Hypoxia, Hyponatemia Narrative: This is a 85-year-old woman I am seeing today at the request of the hospitalist because of CHF and atrial fibrillation. The patient is well known to me and does have a history of chronic atrial fibrillation as well as a chronically implanted dual-chamber pacing system. The patient came into the hospital Saturday with a history of increasing shortness of breath for the last couple of weeks. As it happens I just saw this patient in my office on 10/17/2021 for a previously scheduled appointment and she was reporting some symptoms of fatigue and shortness of breath with activity that were beginning at that time. There was no obvious cardiac issue at that time. She became more significantly short of breath and had some orthopnea over the weekend and came to the emergency room. [place] evaluation shows a fairly large left pleural effusion also had unfortunately shows extensive mediastinal lymphadenopathy suggestive of a malignant process. She is a previous smoker although she quit about 15 years ago. She is not reporting any coughing hemoptysis or chest pain symptoms. She follows in my office because of a history of atrial fibrillation and sick sinus syndrome. I implanted a dual-chamber pacemaker in her in 2006. She had a generator change procedure done in 2012. Her current device is functioning normally and has about 2.5 years left on the device until the need for a generator change at this time. She has not had any accumulating lower extremity edema or other complaints. She is scheduled to have a thoracentesis for both diagnostic and therapeutic reasons later today. Review of Systems Constitutional: Constitutional: Reports lethargy Eyes: Eyes: Reports no additional eye complaints ENT: Reports system reviewed and no additional complaints, except as documented Cardiovascular: Cardiovascular: Reports no additional cardiovascular complaints Respiratory: Respiratory: Reports as per HPI and Reports dyspnea Gastrointestinal: Gastrointestinal: Reports no additional gastrointestinal complaints Musculoskeletal: Musculoskeletal: Reports no additional musculoskeletal complaints Integumentary/Breasts: Skin/Breast: Reports system reviewed and no additional complaints, except as docu Neurologic: Reports system reviewed and no additional complaints, except as documented Endocrine: Endocrine: Reports no additional endocrine complaints Hematologic/Lymphatic: Hematologic/Lymphatic: Reports no additional hematologic/lymphatic complaints Allergic/Immunologic: Allergic/Immunologic: Reports no additional allergic/immunologic complaints PMFSH Past Medical History Medical History (Reviewed 11/05/21 @ 06:28 b
[2021-11-06 11:28] LABS: pH Pleural Fluid 7.449 (7.210-7.500)
[2021-11-06 12:00] LABS: Glucose Point of Care 191 mg/dl (65-105)
[2021-11-06 12:16] LABS: Appearance Pleural Fluid Cloudy (Clear); Pleural fluid source Pleural fluid
[2021-11-06 12:17] LABS: Color Pleural Fluid Other (Colorless); Lymphocytes Pleural Fluid 81 %; Monocytes Pleural Fluid 7 %; Neutrophils Pleural Fluid 7 % (0-25); Other Cells Pleural Fluid 5 %
[2021-11-06 12:18] LABS: Lactate Dehydrogenase 886 U/L (313-618)
[2021-11-06] MEDS: amLODIPine BESYLATE 5 MG TABLET PO (12:49)
[2021-11-06] MEDS: CHOLECALCIFEROL 1,000 UNITS TABLET 2000 UNITS PO (12:50)
[2021-11-06 16:01] LABS: Lactate Dehydrogenase 921 U/L (313-618)
--- NOTE | 2021-11-06 16:25 | PM.IMPN ---
Progress Note: A&P Assessment and Plan (1) Pleural effusion: Code(s): J90 - Pleural effusion, not elsewhere classified Status: Acute (2) Elevated troponin: Code(s): R77.8 - Other specified abnormalities of plasma proteins Status: Acute (3) Acute dyspnea: Code(s): R06.00 - Dyspnea, unspecified Status: Acute (4) Acute hyponatremia: Code(s): E87.1 - Hypo-osmolality and hyponatremia Status: Acute (5) Abnormal chest xray: Code(s): R93.89 - Abnormal findings on diagnostic imaging of other specified body structures Status: Acute (6) Acute exacerbation of CHF (congestive heart failure): Qualifiers: Heart failure type: unspecified Qualified Code(s): I50.9 - Heart failure, unspecified Code(s): I50.9 - Heart failure, unspecified Status: Acute Plan # shortness of breath progressive since a week # large left pleural effusion with atelectasis consultation of left upper and lower lobes discussed possibilities with the patient. Further evaluate recommend ultrasound-guided thoracentesis. Could be CHF related however with findings of extensive lymphadenopathy underlying malignancy not ruled out. She is not interested in any chemotherapy or any radiation therapy or any treatment for underlying cancer. She also wants to be do not resuscitate. Provided options up choosing hospice care versus a place some workup to find out. She is going to think about it and also discussed this with her daughter. Will also consult Cardiology Dr. Argueta who is her regular fabrication lead with regard to her worsened left-sided pleural effusion and underlying history of congestive heart failure and atrial fibrillation. Status post thoracentesis 11/06/2021 initial preliminary testing suggestive of exudative lymphocytic fluid. Cytology and other testings pending. If thoracentesis is negative for diagnosis ultrasound guided biopsy of right supraclavicular lymph node possibility. Discussed with Cardiology as well as pulmonary # left upper lobe 9 mm nodule bronchogenic carcinoma not excluded. Associated extensive superior mediastinal right paratracheal subcarinal bilateral hilar lymphadenopathy suggesting lymphoma or extensive metastatic disease. # Emphysema and old pulmonary granulomatous disease # thoracic aortic aneurysm # acute on chronic congestive heart failure IV diuresis as needed. Cardiology consultation. Check echocardiogram # CKD stage 3 baseline creatinine 1.8 currently at baseline continue to monitor with diuresis creatinine bumped up today will hold off on any further diuresis. Since on likely to be CHF related. Cardiology evaluation appreciated # hypertension # hyperlipidemia # diabetes type 2 on long-term insulin use. Continue to monitor. Start SSI # osteoarthritis of right knee # history of sick sinus syndrome status post pacemaker placement # atrial fibrillation with mild RVR. Resume home medication on Xarelto at home will currently hold due to plan for left thoracentesis # elevated D-dimer already on Xarelto doubt any DVT PE lower duplex is already negative for DVT. llung scan which might come back as indeterminate due to extensive left pleural effusion. Resume Xarelto # extensive lymphadenopathy as noted above # hyponatremia could be due to heart failure. Air continue to monitor # Elevated troponin mild 0.046 could be related to CHF. Serial cardiac enzymes flat Cardiology consultation # DVT prophylaxis on Xarelto # code status do not resuscitate Subjective Date/time seen: 11/06/21 16:25 Interval history: HPI:85-year-old female presents emergency room secondary to shortness of breath that has been progressively getting worse since a week now.? Denies any increased leg swelling.? She denies any cough as well.? She denies any chest pain.? Last night got worse and hence called 911 to bring her to the ER.? She does not have any history of chronic respiratory probl
[2021-11-06] MEDS: INSULIN ASPART (*BKC) 100 UNITS/ML SUB-Q (17:04)
--- NOTE | 2021-11-06 17:06 | PC.NURSE ---
report received from [facility] nurse, awaiting pt arrival.
[2021-11-06 17:19] LABS: Glucose Point of Care 227 mg/dl (65-105)
--- NOTE | 2021-11-06 17:25 | PC.NURSE ---
This patient, Adina Saldana, was transferred to [facility] on 11/06/21 at 1720. Personal belongings sent with patient. Report given to Shona PRIDE. Appropriate documentation sent with patient.
[2021-11-06] MEDS: HYDROcodone/acetaminophen (*CRX) 5-325 MG TABLET 1 TAB PO (17:31)
--- NOTE | 2021-11-06 17:33 | PC.NURSE ---
This patient, Adina Saldana, was transfered to Medical Room 344- from IMU 207. Patient/family oriented to hospital policies and general routines including ID bracelet, bed and alarms, visiting hours, pain management, procedures, bathroom and other care routines, personal items, smoking policy, room service/diet, and visiting hours. Information on how to activate the Rapid Response Team has been discussed. Patient/Family are encouraged to report perceived risks to care and to ask questions if they do not understand what they are told or what they should do.
[2021-11-06] MEDS: ATORVASTATIN 40 MG TABLET PO (20:58)
[2021-11-06] MEDS: METOPROLOL SUCCINATE EXT REL 100 MG TABCR PO (20:58)
[2021-11-06 21:04] LABS: Glucose Point of Care 92 mg/dl (65-105)
[2021-11-07] MEDS: SIMETHICONE 80 MG TAB.CHEW PO (02:49)
[2021-11-07 05:36] LABS: Basophils Percent Auto 0.3 % (0.2-1.2); Hematocrit 51.9 % (37.0-47.0); Hemoglobin 17.6 g/dL (12.0-15.0); Immature Granulocyte Absolute 0.12 K/mm3 (0.00-0.031); Immature Granulocyte Percent A 0.8 % (0-0.5); Lymphocytes Absolute Auto 0.45 K/mm3 (0.9-3.2); Lymphocytes Percent Auto 3.1 % (18.3-44.2); Mean Corpuscular HGB Conc 33.9 g/dl (32-36); Mean Corpuscular Hemoglobin 29.4 pg (26-34); Mean Corpuscular Volume 86.8 fl (80-100); Mean Platelet Volume 9.7 fl (7.4-10.4); Monocytes Absolute Auto 0.7 K/mm3 (0.1-0.6); Monocytes Percent Auto 4.9 % (2.6-8.5); Neutrophils Absolute Auto 13.3 K/mm3 (1.3-6.7); Neutrophils Percent Auto 90.9 % (45.5-73.1); Platelet Count Result 226 k/mm3 (150-375); Red Blood Count 5.98 M/mm3 (4.2-5.4); Red Cell Distribution Width 14.3 % (11.5-14.5); White Blood Count 14.7 K/mm3 (4.5-10.0)
[2021-11-07 05:58] VITALS: PULSE 51; RESP 22; TEMP 36.6; O2SAT 99
[2021-11-07 06:00] VITALS: BP 102/62
[2021-11-07 06:53] LABS: Toxigenic C. Diff NEGATIVE (NEGATIVE)
[2021-11-07 07:41] LABS: Glucose Point of Care 165 mg/dl (65-105)
[2021-11-07 08:11] LABS: Alanine Aminotransferase 17 U/L (6-35); Alkaline Phosphatase 54 U/L (38-126); Anion Gap 13 mmol/L (8-16); Aspartate Amino Transferase 26 U/L (14-36); Bilirubin,Total 1.1 mg/dL (0.2-1.3); Blood Urea Nitrogen 80 mg/dL (7-17); Calcium 8.1 mg/dL (8.4-10.2); Carbon Dioxide 18 mmol/L (22-30); Chloride 94 mmol/L (98-107); Estimated CRCL calculation 12 ml/min; Estimated Glomerular Filt Rate 18; Glucose 150 mg/dL (65-110); Magnesium 2.5 mg/dL (1.6-2.3); Potassium 5.1 mmol/L (3.4-5.0); Sodium 125 mmol/L (137-145)
--- NOTE | 2021-11-07 08:42 | PM.PNPUL ---
Progress Note: A&P Assessment and Plan (1) Pleural effusion: Code(s): J90 - Pleural effusion, not elsewhere classified Status: Acute Assessment and Plan: 11/06 Patient patient with a history of tobacco use (53 PY), mild centrilobular and moderate paraseptal apical predominant emphysema now with SOB, weight loss, mediastinal, right paratracheal, right supraclavicular, subcarinal and bilateral lymphadenopathy. Patient denies any infectious complaints at this time. I spoke with Radiology and reviewed her CT scan. Plan as follows. Left thoracentesis for symptoms and to assess for empyema, transudate, exudate and for cytology. If the thoracentesis is negative for diagnosis radiology can perform ultrasound-guided biopsy of the right supraclavicular lymph node. Patient has told me that if she is found to have cancer she wishes for no treatment. She is willing to proceed with thoracentesis at this time. Thoracentesis later in the day with 1000 mL of serosanguineous fluid removed pH was 7.45, white blood cell and red blood cell count not calculated as specimen clotted, differential neutrophils 7, lymphocytes 81, monocytes 7, other cells 5. remaining studies pending. 11/07: Patient states that with a the thoracentesis immediately helped her breathing and that she feels she is breathing back to normal. room air saturations 99%. She denies any cough, phlegm or hemoptysis. She is afebrile. White blood cell count 14.7, Cr 2.6, developed diarrhea. Awaiting remaining studies from the thoracentesis on 11/06. Discussed with Dr. Guardado. Will follow with you Subjective Date/time seen: 11/07/21 08:42 Interval history: 11/06/2021 ?This is a new pulmonary consult for left pleural effusion and lymphadenopathy.? 85-year-old woman with a history of hypertension, hyperlipidemia, sick sinus syndrome status post permanent pacemaker, atrial fibrillation on Xarelto who presented to the hospital on 11/05/2021 with 1 week worsening shortness of breath, dyspnea on exertion, orthopnea.? Patient denies fever, chills, cough, hemoptysis, change in bowel or urinary issues.? she does tell me she has lost 10 lb over the last month from 155 lb to 145 lb.? On 11/05 the patient was short of breath and presented to the emergency room with a white blood cell count of 6.3,? blood gas of 7.37/34/90 on room air,? creatinine of 1.80,? BNP of 32 1 0,? a TSH of 0.367, free T4 1.08, total T3 1.06,? COVID RT PCR negative.? patient had a chest x-ray with a large left pleural effusion and had a CT scan of the chest demonstrating mild centrilobular and moderate apical predominant paraseptal emphysema, large left pleural effusion, mediastinal, right paratracheal, subcarinal, supraclavicular on the right and bilateral hilar lymphadenopathy.? There is a 9 mm nodule in the left upper? ? Her last dose of right for rocks a band was 11/04 in the afternoon. ?patient smoked 1 pack of cigarettes from [id number] for a total of 53 pack years.? Patient's was exposed to secondhand smoke from her from [id number] and he of small cell lung cancer.? Patient denies vaping, illicit drug use, sandblasting, welding, asbestos were, professional painting or steel milling supervisor.? Patient denies prior history of cancer.? Patient denies prior history of chemotherapy. 11/06: ? When I enter the room patient was on 2 L nasal cannula saturations 99%.? I placed her on room air and her saturations were 96%.? The patient still complained of shortness of breath at rest and with any activity.? There were no wheezing on exam. Thoracentesis later in the day with 1000 mL of serosanguineous fluid removed pH was 7.45, white blood cell and red blood cell count not calculated as specimen clotted, differential neutrophils 7, lymphocytes 81, monocytes 7, other cells 5. remaining studies pending. 11/07: Patient states that with a the thoracentesis immediately helped her breathing and that she feels she is br
[2021-11-07] MEDS: SODIUM BICARBONATE TAB 650 MG TABLET PO ×2 (09:52→20:15)
[2021-11-07] MEDS: CHOLECALCIFEROL 1,000 UNITS TABLET 2000 UNITS PO (09:52)
[2021-11-07] MEDS: amLODIPine BESYLATE 5 MG TABLET PO (09:52)
--- NOTE | 2021-11-07 10:18 | PCOTNOTE ---
Attempted to see patient this am, however patient refused stating, Not today, okay? Pt reported already completing bathing with nursing and declined oral care and grooming at sink due to constant diarrhea. I had it yesterday. I have it today. It happens when I stand up, and I can't help it.
[2021-11-07] MEDS: LOPERAMIDE HCL 2 MG CAPSULE PO ×2 (10:41→16:25)
[2021-11-07] MEDS: SODIUM CHLORIDE 0.9% IV 1,000 ML 100 ML IV CONT ×2 (11:03→20:29)
--- NOTE | 2021-11-07 11:25 | PM.IMPN ---
Progress Note: A&P Assessment and Plan (1) Pleural effusion: Code(s): J90 - Pleural effusion, not elsewhere classified Status: Acute (2) Elevated troponin: Code(s): R77.8 - Other specified abnormalities of plasma proteins Status: Acute (3) Acute dyspnea: Code(s): R06.00 - Dyspnea, unspecified Status: Acute (4) Acute hyponatremia: Code(s): E87.1 - Hypo-osmolality and hyponatremia Status: Acute (5) Abnormal chest xray: Code(s): R93.89 - Abnormal findings on diagnostic imaging of other specified body structures Status: Acute (6) Acute exacerbation of CHF (congestive heart failure): Qualifiers: Heart failure type: unspecified Qualified Code(s): I50.9 - Heart failure, unspecified Code(s): I50.9 - Heart failure, unspecified Status: Acute (7) Diarrhea: Code(s): R19.7 - Diarrhea, unspecified Status: Acute Plan # shortness of breath progressive since a week # large left pleural effusion with atelectasis consultation of left upper and lower lobes discussed possibilities with the patient. Further evaluate recommend ultrasound-guided thoracentesis. Could be CHF related however with findings of extensive lymphadenopathy underlying malignancy not ruled out. She is not interested in any chemotherapy or any radiation therapy or any treatment for underlying cancer. She also wants to be do not resuscitate. Provided options up choosing hospice care versus a place some workup to find out. She is going to think about it and also discussed this with her daughter. Will also consult Cardiology Dr. Argueta who is her regular substitute crossing guard with regard to her worsened left-sided pleural effusion and underlying history of congestive heart failure and atrial fibrillation. Status post thoracentesis 11/06/2021 initial preliminary testing suggestive of exudative lymphocytic fluid. Cytology and other testings pending. If thoracentesis is negative for diagnosis ultrasound guided biopsy of right supraclavicular lymph node possibility. Discussed with Cardiology as well as pulmonary Pleural fluid analysis with exudative lymphocytic fluid. Initial pleural fluid analysis is negative for malignant cells the cytology test is still pending. Option of right supraclavicular lymph node biopsy discussed with the patient and refuses to get any further test done until this cytology test is finalized at least. She might up to do no other testing. Will await cytology report. # left upper lobe 9 mm nodule bronchogenic carcinoma not excluded. Associated extensive superior mediastinal right paratracheal subcarinal bilateral hilar lymphadenopathy suggesting lymphoma or extensive metastatic disease. # Emphysema and old pulmonary granulomatous disease # thoracic aortic aneurysm # acute on chronic congestive heart failure IV diuresis as needed. Cardiology consultation. Echo is pending. Cardiology note reviewed # acute on CKD stage 3 baseline creatinine 1.8 currently at baseline on admission.continue to monitor with diuresis creatinine bumped up will hold off on any further diuresis. Since on likely to be CHF related. Cardiology evaluation appreciated . With ongoing diarrhea this has worsened further. Will get IV fluids started today. Reassess tomorrow for further tapering of IV fluid depending on the renal function. Monitor urine output check renal ultrasound to ensure no obstructive uropathy # hypertension # hyperlipidemia # diabetes type 2 on long-term insulin use. Continue to monitor. Start SSI # osteoarthritis of right knee # history of sick sinus syndrome status post pacemaker placement # atrial fibrillation with mild RVR. Resume home medication on Xarelto at home will currently hold due to plan for left thoracentesis # elevated D-dimer already on Xarelto doubt any DVT PE lower duplex is already negative for DVT. llung scan which might come back as indeterminate due to exten
[2021-11-07 11:54] LABS: Glucose Point of Care 172 mg/dl (65-105)
--- NOTE | 2021-11-07 13:17 | P.CDI_ITS ---
CDI Query Clarification Request Please specify type of acute on chronic CHF, if known. * diastolic * systolic * combined <BAUDILIO Lord - Last Filed: 11/07/21 13:19> Provider Comments Diastolic <Stephen Guardado MD - Last Filed: 11/07/21 18:11>
--- NOTE | 2021-11-07 13:17 | WPDCDIQUERY2 ---
CDI Query Clarification Request Please specify type of acute on chronic CHF, if known. diastolic systolic combined <BAUDILIO Lord - Last Filed: 11/07/21 13:19> Provider Comments Diastolic <Stephen Guardado MD - Last Filed: 11/07/21 18:11>
--- NOTE | 2021-11-07 14:00 | PCPTNOTE ---
Patient refused treatment this session. Pt states, I can't do it today because I am having diarrhea when I get up.
[2021-11-07 15:05] VITALS: BP 91/63; PULSE 90; RESP 18; TEMP 36.1; O2SAT 96
[2021-11-07 16:24] LABS: Glucose Point of Care 153 mg/dl (65-105)
[2021-11-07] MEDS: ATORVASTATIN 40 MG TABLET PO (20:15)
[2021-11-07 20:21] VITALS: PULSE 96
[2021-11-07] MEDS: METOPROLOL SUCCINATE EXT REL 100 MG TABCR PO (20:21)
[2021-11-07 20:30] LABS: Glucose Point of Care 155 mg/dl (65-105)
[2021-11-07 21:00] VITALS: BP 133/82; PULSE 54; RESP 22; TEMP 36.5; O2SAT 95
[2021-11-08 05:30] LABS: Basophils Percent Auto 0.1 % (0.2-1.2); Hematocrit 47.4 % (37.0-47.0); Hemoglobin 16.3 g/dL (12.0-15.0); Immature Granulocyte Percent A 0.8 % (0-0.5); Lymphocytes Absolute Auto 0.34 K/mm3 (0.9-3.2); Lymphocytes Percent Auto 2.6 % (18.3-44.2); Mean Corpuscular HGB Conc 34.4 g/dl (32-36); Mean Corpuscular Hemoglobin 29.7 pg (26-34); Mean Corpuscular Volume 86.5 fl (80-100); Mean Platelet Volume 9.8 fl (7.4-10.4); Monocytes Absolute Auto 0.8 K/mm3 (0.1-0.6); Monocytes Percent Auto 5.8 % (2.6-8.5); Neutrophils Absolute Auto 11.8 K/mm3 (1.3-6.7); Neutrophils Percent Auto 90.7 % (45.5-73.1); Platelet Count Result 209 k/mm3 (150-375); Red Blood Count 5.48 M/mm3 (4.2-5.4); Red Cell Distribution Width 14.7 % (11.5-14.5); White Blood Count 13.1 K/mm3 (4.5-10.0)
[2021-11-08 06:00] VITALS: BP 117/61; PULSE 77; RESP 22; O2SAT 95
[2021-11-08 06:00] LABS: Alanine Aminotransferase 15 U/L (6-35); Alkaline Phosphatase 55 U/L (38-126); Anion Gap 15 mmol/L (8-16); Aspartate Amino Transferase 23 U/L (14-36); Blood Urea Nitrogen 94 mg/dL (7-17); Calcium 7.3 mg/dL (8.4-10.2); Carbon Dioxide 16 mmol/L (22-30); Chloride 95 mmol/L (98-107); Estimated CRCL calculation 12 ml/min; Estimated Glomerular Filt Rate 14; Glucose 166 mg/dL (65-110); Magnesium 2.4 mg/dL (1.6-2.3); Sodium 126 mmol/L (137-145)
[2021-11-08 07:54] LABS: Glucose Point of Care 187 mg/dl (65-105)
[2021-11-08] MEDS: amLODIPine BESYLATE 5 MG TABLET PO (08:13)
[2021-11-08] MEDS: SODIUM BICARBONATE TAB 650 MG TABLET PO ×2 (08:13→20:27)
--- NOTE | 2021-11-08 08:33 | PM.PNPUL ---
Progress Note: A&P Assessment and Plan (1) Pleural effusion: Code(s): J90 - Pleural effusion, not elsewhere classified Status: Acute Assessment and Plan: 11/06 Patient patient with a history of tobacco use (53 PY), mild centrilobular and moderate paraseptal apical predominant emphysema now with SOB, weight loss, mediastinal, right paratracheal, right supraclavicular, subcarinal and bilateral hiklar lymphadenopathy with a moderate left effusion. Patient denies any infectious complaints at this time. I spoke with Radiology and reviewed her CT scan. Plan as follows. Left thoracentesis for symptoms and to assess for empyema, transudate, exudate and for cytology. If the thoracentesis is negative for diagnosis radiology can perform ultrasound-guided biopsy of the right supraclavicular lymph node. Patient has told me that if she is found to have cancer she wishes for no treatment. She is willing to proceed with thoracentesis at this time. Thoracentesis later in the day with 1000 mL of serosanguineous fluid removed pH was 7.45, white blood cell and red blood cell count not calculated as specimen clotted, differential neutrophils 7, lymphocytes 81, monocytes 7, other cells 5. remaining studies pending. 11/07: Patient states that with a the thoracentesis immediately helped her breathing and that she feels she is breathing back to normal. room air saturations 99%. She denies any cough, phlegm or hemoptysis. She is afebrile. White blood cell count 14.7, Cr 2.6, developed diarrhea. Awaiting remaining studies from the thoracentesis on 11/06. later in day the pleural fluid situs been resulted as no malignant cells. 11/08 patient has no respiratory complaints. She denies fever, chills, cough, phlegm production or hemoptysis. Patient remains on room air with saturations 95%. She states that her diarrhea is better. Creatinine is 3.20. Repeat chest x-ray today shows a moderate left pleural effusion somewhat improved from the chest x-ray taken immediately post thoracentesis on 11/06. Overall she appears fatigued and is complaining of total body weakness. I told her we are waiting on the final results of the pleural fluid. She tells me that if this is negative that she does not want any additional invasive testing including lymph node biopsy, bronchoscopy and that she would not want dialysis. As noted previously she tells me that even if this was cancer she would not want any treatment. I did mention that there is a hospice team in the hospital and she told me that she just does not want to suffer anymore. I told her I would discuss with the hospitalist. Discussed with Dr. Reyes. Will follow with you Subjective Date/time seen: 11/08/21 08:33 Interval history: 11/06/2021 ?This is a new pulmonary consult for left pleural effusion and lymphadenopathy.? 85-year-old woman with a history of hypertension, hyperlipidemia, sick sinus syndrome status post permanent pacemaker, atrial fibrillation on Xarelto who presented to the hospital on 11/05/2021 with 1 week worsening shortness of breath, dyspnea on exertion, orthopnea.? Patient denies fever, chills, cough, hemoptysis, change in bowel or urinary issues.? she does tell me she has lost 10 lb over the last month from 155 lb to 145 lb.? On 11/05 the patient was short of breath and presented to the emergency room with a white blood cell count of 6.3,? blood gas of 7.37/34/90 on room air,? creatinine of 1.80,? BNP of 32 1 0,? a TSH of 0.367, free T4 1.08, total T3 1.06,? COVID RT PCR negative.? patient had a chest x-ray with a large left pleural effusion and had a CT scan of the chest demonstrating mild centrilobular and moderate apical predominant paraseptal emphysema, large left pleural effusion, mediastinal, right paratracheal, subcarinal, supraclavicular on the right and bilateral hilar lymphadenopathy.? There is a 9 mm nodule in the left upper? ? Her last dose of right for rocks a
[2021-11-08 08:55] VITALS: O2SAT 94
[2021-11-08] MEDS: LOPERAMIDE HCL 2 MG CAPSULE PO (09:26)
[2021-11-08] MEDS: SODIUM CHLORIDE 0.9% IV 1,000 ML 100 ML IV CONT (09:27)
--- NOTE | 2021-11-08 09:39 | PCOTNOTE ---
Attempted to see patient this am, however patient refused. Upon entering patient began shaking head stating, I'm miserable, and I'm not doing physical therapy. Pt reported to have continued constant diarrhea.
[2021-11-08] MEDS: ALPRAZolam (*CRX) 0.5 MG TABLET PO (10:33)
[2021-11-08 11:23] LABS: Glucose Point of Care 165 mg/dl (65-105)
[2021-11-08 12:30] LABS: Amylase, Pleural Fluid 12 U/L
[2021-11-08 13:21] LABS: Glucose Pleural Fluid 179 mg/dL; LDH Pleural Fluid 308 U/L; Total Protein Pleural Fluid 3.3 g/dL
[2021-11-08 14:00] VITALS: BP 123/69; PULSE 76; RESP 24; O2SAT 95
--- NOTE | 2021-11-08 14:44 | PCNFU ---
Addendum entered by Denae Cruz 11/08/21 14:54: Received MD orders for Banatrol TID. Original Note: Nutrition Follow-Up Complete: [place] oral intake R/T Pleural effusion, CHF, and Hypoxia AEB pt. report Goal: Pt. to meet >50% of estimated nutritional needs - pt is not meeting goal, continue current goal. Pt current nutrition is heart healthy. Last recorded weight is 82.6 kg, 15kg increase from 11/05. Bowel Motility: +BM 11/08 Labs Reviewed: Hgb 16.3, Hct 47.4, Alb 3.0, Na 126, GFR 14, BUN 94,Cr 3.20, Glu 166 Meds Noted: Vit D, Saline, Novolog, Lipitor Skin: WNL Additional Notes: Pt has no appetite, doesn't want to eat, and is not drinking supplements. Pt family reports pt is moving to hospice shortly, hospice referral has initiated. Will monitor labs, medication, wt, and reported intake every 5 days
--- NOTE | 2021-11-08 14:56 | PCNSR ---
On 11/08/21, the student,Denae Cruz, provided care and completed [facility] documentation on this patient. I have reviewed the student's documentation and agree with the findings.
--- NOTE | 2021-11-08 15:17 | PCPTNOTE ---
The patient treatment was not able to be completed on 11/08/2021 due to patient possible pending hospice. Will plan to continue treatment per plan of care.
--- NOTE | 2021-11-08 16:25 | P.PNIM_ITS ---
Progress Note: A&P Assessment and Plan (1) Pleural effusion: Code(s): J90 - Pleural effusion, not elsewhere classified Status: Acute (2) Elevated troponin: Code(s): R77.8 - Other specified abnormalities of plasma proteins Status: Acute (3) Acute dyspnea: Code(s): R06.00 - Dyspnea, unspecified Status: Acute (4) Acute hyponatremia: Code(s): E87.1 - Hypo-osmolality and hyponatremia Status: Acute (5) Abnormal chest xray: Code(s): R93.89 - Abnormal findings on diagnostic imaging of other specified body structures Status: Acute (6) Acute exacerbation of CHF (congestive heart failure): Qualifiers: Heart failure type: unspecified Qualified Code(s): I50.9 - Heart failure, unspecified Code(s): I50.9 - Heart failure, unspecified Status: Acute (7) Diarrhea: Code(s): R19.7 - Diarrhea, unspecified Status: Acute Plan # shortness of breath progressive since a week # large left pleural effusion with atelectasis consultation of left upper and lower lobes discussed possibilities with the patient. Further evaluate recommend ultrasound-guided thoracentesis. Could be CHF related however with findings of extensive lymphadenopathy underlying malignancy not ruled out. She is not interested in any chemotherapy or any radiation therapy or any treatment for underlying cancer. She also wants to be do not resuscitate. Provided options up choosing hospice care versus a place some workup to find out. She is going to think about it and also discussed this with her daughter. Will also consult Cardiology Dr. Argueta who is her regular home care music therapist with regard to her worsened left-sided pleural effusion and underlying history of congestive heart failure and atrial fibrillation. Status post thoracentesis 11/06/2021 initial preliminary testing suggestive of exudative lymphocytic fluid. Cytology and other testings pending. If thoracentesis is negative for diagnosis ultrasound guided biopsy of right supraclavicular lymph node possibility. Discussed with Cardiology as well as pulmonary Pleural fluid analysis with exudative lymphocytic fluid. Initial pleural fluid analysis is negative for malignant cells the cytology test is still pending. Option of right supraclavicular lymph node biopsy discussed with the patient and refuses to get any further test done until this cytology test is finalized at least. She might up to do no other testing. Will await cytology report. # left upper lobe 9 mm nodule bronchogenic carcinoma not excluded. Associated extensive superior mediastinal right paratracheal subcarinal bilateral hilar lymphadenopathy suggesting lymphoma or extensive metastatic disease. # Emphysema and old pulmonary granulomatous disease # thoracic aortic aneurysm # acute on chronic congestive heart failure IV diuresis as needed. Cardiology consultation. Echo is pending. Cardiology note reviewed # acute on CKD stage 3 baseline creatinine 1.8 currently at baseline on admission.continue to monitor with diuresis creatinine bumped up will hold off on any further diuresis. Since on likely to be CHF related. Cardiology evaluation appreciated . With ongoing diarrhea this has worsened further. Will get IV fluids started today. Reassess tomorrow for further tapering of IV fluid depending on the renal function. Monitor urine output check renal ultrasound to ensure no obstructive uropathy # hypertension # hyperlipidemia # diabetes type 2 on long-term insulin use. Continue to monitor. Start SSI # osteoarthritis of right knee # history of sick sinus syndrome status post pacemaker placement # atri
[2021-11-08 16:28] LABS: Albumin Pleural Fluid 1.9 g/dL
[2021-11-08 16:37] LABS: Glucose Point of Care 162 mg/dl (65-105)
[2021-11-08] MEDS: HYDROcodone/acetaminophen (*CRX) 5-325 MG TABLET 1 TAB PO (17:51)
[2021-11-08 20:03] LABS: Glucose Point of Care 167 mg/dl (65-105)
[2021-11-08 20:27] VITALS: PULSE 72
[2021-11-08] MEDS: ATORVASTATIN 40 MG TABLET PO (20:27)
[2021-11-08] MEDS: METOPROLOL SUCCINATE EXT REL 100 MG TABCR PO (20:27)
[2021-11-08 20:46] VITALS: BP 116/54; PULSE 78; RESP 28; TEMP 37.2; O2SAT 100
[2021-11-09] MEDS: SODIUM CHLORIDE 0.9% IV 1,000 ML 100 ML IV CONT (01:18)
[2021-11-09] MEDS: ALPRAZolam (*CRX) 0.5 MG TABLET PO ×2 (01:18→08:30)
[2021-11-09 06:00] VITALS: BP 123/67; PULSE 78; RESP 25; TEMP 36.7; O2SAT 100
[2021-11-09 07:37] LABS: Glucose Point of Care 151 mg/dl (65-105)
[2021-11-09] MEDS: amLODIPine BESYLATE 5 MG TABLET PO (08:25)
--- NOTE | 2021-11-09 09:59 | PM.DS ---
DS: Admitting Diagnosis Discharge Date 11/09/2021 Admitting Diagnosis shortness of breath DS: Discharge Diagnosis Discharge Diagnosis (1) Pleural effusion: Code(s): J90 - Pleural effusion, not elsewhere classified Status: Acute (2) Elevated troponin: Code(s): R77.8 - Other specified abnormalities of plasma proteins Status: Acute (3) Acute dyspnea: Code(s): R06.00 - Dyspnea, unspecified Status: Acute (4) Acute hyponatremia: Code(s): E87.1 - Hypo-osmolality and hyponatremia Status: Acute (5) Abnormal chest xray: Code(s): R93.89 - Abnormal findings on diagnostic imaging of other specified body structures Status: Acute (6) Acute exacerbation of CHF (congestive heart failure): Qualifiers: Heart failure type: unspecified Qualified Code(s): I50.9 - Heart failure, unspecified Code(s): I50.9 - Heart failure, unspecified Status: Acute (7) Diarrhea: Code(s): R19.7 - Diarrhea, unspecified Status: Acute Plan # shortness of breath progressive since a week # large left pleural effusion with atelectasis consultation of left upper and lower lobes discussed possibilities with the patient. Further evaluate recommend ultrasound-guided thoracentesis. Could be CHF related however with findings of extensive lymphadenopathy underlying malignancy not ruled out. She is not interested in any chemotherapy or any radiation therapy or any treatment for underlying cancer. She also wants to be do not resuscitate. Provided options up choosing hospice care versus a place some workup to find out. She is going to think about it and also discussed this with her daughter. Will also consult Cardiology Dr. Argueta who is her regular terminal worker with regard to her worsened left-sided pleural effusion and underlying history of congestive heart failure and atrial fibrillation. Status post thoracentesis 11/06/2021 initial preliminary testing suggestive of exudative lymphocytic fluid. Cytology and other testings pending. If thoracentesis is negative for diagnosis ultrasound guided biopsy of right supraclavicular lymph node possibility. Discussed with Cardiology as well as pulmonary Pleural fluid analysis with exudative lymphocytic fluid. Initial pleural fluid analysis is negative for malignant cells the cytology test is still pending. Option of right supraclavicular lymph node biopsy discussed with the patient and refuses to get any further test done until this cytology test is finalized at least. She might up to do no other testing. Will await cytology report. # left upper lobe 9 mm nodule bronchogenic carcinoma not excluded. Associated extensive superior mediastinal right paratracheal subcarinal bilateral hilar lymphadenopathy suggesting lymphoma or extensive metastatic disease. # Emphysema and old pulmonary granulomatous disease # thoracic aortic aneurysm # acute on chronic congestive heart failure IV diuresis as needed. Cardiology consultation. Echo is pending. Cardiology note reviewed # acute on CKD stage 3 baseline creatinine 1.8 currently at baseline on admission.continue to monitor with diuresis creatinine bumped up will hold off on any further diuresis. Since on likely to be CHF related. Cardiology evaluation appreciated . With ongoing diarrhea this has worsened further. Will get IV fluids started today. Reassess tomorrow for further tapering of IV fluid depending on the renal function. Monitor urine output check renal ultrasound to ensure no obstructive uropathy # hypertension # hyperlipidemia # diabetes type 2 on long-term insulin use. Continue to monitor. Start SSI # osteoarthritis of right knee # history of sick sinus syndrome status post pacemaker placement # atrial fibrillation with mild RVR. Resume home medication on Xarelto at home will currently hold due to plan for left thoracentesis # elevated D-dimer already on Xarelto doubt any DVT PE lo
[2021-11-09 11:16] LABS: Glucose Point of Care 186 mg/dl (65-105)
== END 2021-11-09 12:20 | disposition hospice, home (50) | DRG 840 ==
LOC: ANHED 10:31 → ANHIMU 11:29 → ANH3MED 11-07 10:22 → ANHIMU 11-10 11:32
PROVIDERS: Emergency Medicine; Internal Medicine; Internal Medicine Pulmonary Disease; Admitting Provider Internal Medicine; Emergency Provider Emergency Medicine; PCP Family Medicine; Visit Provider Family Medicine
DX: C77.1 Secondary and unspecified malignant neoplasm of intrathoracic lymph nodes (principal); I50.33 Acute on chronic diastolic (congestive) heart failure; J91.0 Malignant pleural effusion; C77.0 Secondary and unspecified malignant neoplasm of lymph nodes of head, face and neck; C34.12 Malignant neoplasm of upper lobe, left bronchus or lung; E87.1 Hypo-osmolality and hyponatremia; I13.0 Hypertensive heart and chronic kidney disease with heart failure and stage 1 through stage 4 chronic kidney disease, or unspecified chronic kidney disease; I48.20 Chronic atrial fibrillation, unspecified; N18.30 Chronic kidney disease, stage 3 unspecified; R09.02 Hypoxemia; E11.22 Type 2 diabetes mellitus with diabetic chronic kidney disease; Z20.822 Contact with and (suspected) exposure to COVID-19; M17.11 Unilateral primary osteoarthritis, right knee; E78.5 Hyperlipidemia, unspecified; Z66 Do not resuscitate; J43.9 Emphysema, unspecified; R19.7 Diarrhea, unspecified; Z98.49 Cataract extraction status, unspecified eye; Z95.0 Presence of cardiac pacemaker; Z87.891 Personal history of nicotine dependence; Z79.4 Long term (current) use of insulin
CPT/HCPCS: 32555; 36415; 71045; 71250; 76775; 80053; 82042; 82150; 82945; 82948; 83036; 83615; 83735; 83880; 83986; 84157; 84311; 84478; 84484; 85025; 85380; 85610; 85730; 87070; 87075; 87205; 87493; 88104; 88108; 88305; 88342; 89051; 93005; 93970; 94640; 96374; 96376; 97161; 97165; 99285; A9270; C9803; G0378; J1815; J1940; J7030; U0003; U0005